=== PATIENT | female | born 1995 | race Hispanic/Latino ===

== ENCOUNTER 2023-10-26 14:01 | Emergency (ER) | payer MEDICAID, OTHER ==
[~2023-10-26] VITALS: Ht 147.3 cm; Wt 54.4 kg
[2023-10-26 14:02] VITALS: BP 141/84; PULSE 80; RESP 16
[2023-10-26] MEDS ORDERED: ACET500P24 PO (14:23)
[2023-10-26] MEDS ORDERED: BACL5TAB PO (14:23)
== END 2023-10-26 16:38 | disposition home or self-care (01) ==
LOC: EDH 14:01
DX: Z04.1 Encounter for examination and observation following transport accident (principal); Z98.890 Other specified postprocedural states